=== PATIENT | male | born 1955 | race Caucasian/White ===

== ENCOUNTER 2020-07-12 10:31 | Emergency (ER) | payer BC, OTHER ==
[~2020-07-12] VITALS: Ht 175.3 cm; Wt 104.2 kg
[2020-07-12] MEDS ORDERED: LISI20TA33 PO (11:21)
[2020-07-12] MEDS ORDERED: RABIES VACCINE HUMAN 2.5 INTERNATIONAL UNITS/ML VIAL (90675) IM ONE (11:25)
[2020-07-12 11:51] VITALS: BP 112/83
== END 2020-07-12 12:07 | disposition home or self-care (01) ==
LOC: M ED 10:31
DX: Z23 Encounter for immunization (principal); Z20.3 Contact with and (suspected) exposure to rabies; E11.9 Type 2 diabetes mellitus without complications

== ENCOUNTER 2020-07-15 09:06 | Emergency (ER) | payer BC, OTHER ==
[~2020-07-15] VITALS: Ht 175.3 cm; Wt 100.0 kg
[~2020-07-15 09:06] MED LIST: LISI20TA33 PO
[2020-07-15] MEDS ORDERED: RABIES VACCINE HUMAN 2.5 INTERNATIONAL UNITS/ML VIAL (90675) IM ONE (11:20)
[2020-07-15] MEDS ORDERED: BOOSTRIX/ADACEL VACCINE (DIPHTH/PERTUSS/ACELL/TETANUS) 0.5ML SYR IM ONE (11:25)
[2020-07-15 11:56] VITALS: BP 130/75
== END 2020-07-15 12:19 | disposition home or self-care (01) ==
LOC: M ED 09:06
DX: Z20.3 Contact with and (suspected) exposure to rabies (principal); Z23 Encounter for immunization; I11.9 Hypertensive heart disease without heart failure; I25.2 Old myocardial infarction; E78.5 Hyperlipidemia, unspecified; K21.9 Gastro-esophageal reflux disease without esophagitis; Z79.899 Other long term (current) drug therapy